=== PATIENT | female | born 1990 | race Hispanic/Latino ===

== ENCOUNTER 2017-09-08 15:54 | Emergency (ER) | payer BC ==
[2017-09-08 16:11] VITALS: O2SAT 100
[2017-09-08] MEDS ORDERED: Sodium Chloride 0.9% 1,000 ML ONE (17:08)
--- NOTE | 2017-09-08 17:18 | C.PDOC ---
History Of Present Illness 26 y/o female presents to ED with c/o "sharp" LLQ abdominal pain radiating to lower back since last night. Patient reports nausea and vomiting today associated with difficulty urinating and states she feels "pressure" in bladder. Patient denies dysuria, hematuria, fever, chills or any other complaints at this time. Time Seen by Provider: 09/08/17 16:43 Chief Complaint (Nursing): Female Genitourinary History Per: Patient History/Exam Limitations: no limitations Onset/Duration Of Symptoms: Days Current Symptoms Are (Timing): Still Present Location Of Pain/Discomfort: LLQ Radiation Of Pain To:: Back Past Medical History Reviewed: Historical Data, Nursing Documentation, Vital Signs Vital Signs: Last Vital Signs Temp 97.4 F L 09/08/17 16:08 Pulse 57 L 09/08/17 16:08 Resp 20 09/08/17 16:08 BP 134/87 09/08/17 16:08 Pulse Ox 100 09/08/17 17:26 - Medical History PMH: Anxiety, Bipolar Disorder, Depression Surgical History: No Surg Hx - [facility] Procedures INFLUENZA VACCINATION (02/16/14) NONEXCIS DEBRID OF WOUND, INFECT, OR BURN (02/16/14) OTHER SKIN & SUBQ I D (02/16/14) RADICAL EXCIS SKIN LES (02/16/14) VACCINATION NEC (02/16/14) Family History: States: No Known Family Hx - Social History Hx Tobacco Use: Yes Hx Alcohol Use: No Hx Substance Use: Yes (smokes) - Immunization History Hx Tetanus Toxoid Vaccination: No Hx Influenza Vaccination: No Hx Pneumococcal Vaccination: No Review Of Systems Constitutional: Negative for: Fever, Chills Gastrointestinal: Positive for: Abdominal Pain Genitourinary: Negative for: Dysuria, Hematuria Musculoskeletal: Positive for: Back Pain Skin: Negative for: Rash Neurological: Negative for: Weakness, Numbness Physical Exam - Physical Exam Appears: Non-toxic, No Acute Distress Skin: Warm, Dry, No Rash Head: Atraumatic, Normacephalic Eye(s): bilateral: Normal Inspection Oral Mucosa: Moist Neck: Normal ROM, Supple Cardiovascular: Rhythm Regular Respiratory: Normal Breath Sounds, No Rales, No Rhonchi, No Wheezing Gastrointestinal/Abdominal: Soft, No Tenderness, No Guarding, No Rebound Back: No CVA Tenderness, No Paraspinal Tenderness Extremity: Normal ROM, Capillary Refill (<2 seconds) Neurological/Psych: Oriented x3, Normal Speech, Normal Cognition, Normal Motor, Normal Sensation ED Course And Treatment - Laboratory Results Result Diagrams: 09/08/17 17:54 09/08/17 17:54 O2 Sat by Pulse Oximetry: 100 (RA) Pulse Ox Interpretation: Normal - CT Scan/US CT of abdomen/pelvis Other Rad Studies (CT/US): Read By Radiologist, Radiology Report Reviewed CT/US Interpretation: Accession No. : [id number]. Patient Name / ID : TUNG SEAY / [id number]. Exam Date : 09/08/2017 18:39:58 ( Approved ). Study Comment : Sex / Age : F / 26Y. Creator : Daniel Hidalgo MD. Dictator : Daniel Hidalgo MD. Supervisor Hanging And Trimming : Electronics Technology Instructor : Daniel Hidalgo MD. Approver2 : Report Date : 09/08/2017 18:53:03. My Comment : . PROCEDURE: CT Abdomen and Pelvis without intravenous contrast. HISTORY: left flank pain /hematuria. COMPARISON: Abdomen ultrasound exam 02/05/2015. TECHNIQUE: Helical CT of the abdomen and pelvis was performed without oral or intravenous contrast as per referring physician request. Contrast dose: None. Radiation dose: Total exam DLP = 1146.00 mGy-cm. This CT exam was performed using one or more of the following dose reduction techniques: Automated exposure control, adjustment of the mA and/or kV according to patient size, and/or use of iterative reconstruction technique. FINDINGS: LOWER THORAX: Fibrotic changes noted minimally at the left base. No pleural pericardial effusion bilaterally or cardiomegaly. LIVER: Unremarkable. No gross lesion or ductal dilatation. GALLBLADDER AND BILE DUCTS: Unremarkable. PANCREAS: Unremarkable. No gross lesion or ductal dilatation. SPLEEN: Unremarkable. ADRENALS: Unremarkable. No mass. KIDNEYS AND URETERS: Borderline left hydronephrosis remains as well as trace left perinephric reaction with a 2 mm calculus identified at the right urinary bladder base likely recently fell from the left-sided urinary tract. No right-sided obstructive uropathy. A punctate intrarenal calculus identified at the midpole right kidney as well as a lower pole. None at the left kidney at this time. VASCULATURE: Unremarkable. No aortic aneurysm. BOWEL: Unremarkable. No obstruction. No gross mural thickening. APPENDIX: Unremarkable. Normal appendix. PERITONEUM: Unremarkable. No free fluid. No free air. LYMPH NODES: Unremarkable. No enlarged lymph nodes. BLADDER: Unremarkable. REPRODUCTIVE: Unremarkable. BONES: No acute fracture. OTHER FINDINGS: None. IMPRESSION: Likely recess expelled calculus from the left urinary tract at the right-sided the urinary bladder base 2 mm in size peer residual left-sided obstructive uropathy is appreciate the left kidney as discussed above. Punctate intrarenal calculi identified at the mid and lower pole right kidney which is otherwise unremarkable. Progress Note: On re-evaluation patient feels better and is stable to be d/c home with follow up. Disposition - Disposition Referrals: Otto Felipe Jr., MD [Staff Provider] - Disposition: HOME/ ROUTINE Disposition Time: 18:58 Condition: IMPROVED Additional Instructions: Follow up with PMD and Urologist within 2-3 days. Return to ED if feel worse. 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 - Scribe Statement The provider has reviewed the documentation as recorded by the Sharon Collado All medical record entries made by the Sharon were at my direction and personally dictated by me. I have reviewed the chart and agree that the record accurately reflects my personal performance of the history, physical exam, medical decision making, and the department course for this patient. I have also personally directed, reviewed, and agree with the discharge instructions and disposition.
[2017-09-08] MEDS ORDERED: Sodium Chloride 0.9% 1,000 ML IV STA (17:35)
[2017-09-08 18:00] LABS: BASO % 0.2 % (0.0-2.0); EOS % 0.1 % (0.0-4.0); HEMOGLOBIN 12.6 g/dL (11.0-16.0); LYMPH # 1.4 K/uL (1.0-4.3); MEAN CELL VOLUME 87.6 fL (81.0-99.0); MEAN CORPUSCULAR HEMOGLOBIN 29.2 pg (27.0-31.0); MEAN CORPUSCULAR HGB CONC 33.4 g/dL (33.0-37.0); MEAN PLATELET VOLUME 9.6 fL (7.2-11.7); MONO # 0.5 K/uL (0.0-0.8); MONO % 4.2 % (0.0-10.0); NEUT # 9.4 K/uL (1.8-7.0); NEUT % 83.5 % (50.0-75.0); NRBC % 0.1 % (0.0-2.0); RBC 4.31 Mil/uL (3.80-5.20); RED CELL DISTRIBUTION WIDTH 14.3 % (11.5-14.5); WHITE BLOOD COUNT 11.3 K/uL (4.8-10.8)
[2017-09-08 18:05] LABS: SQUAMOUS EPITHIAL 9 /hpf (0-5); URINE BACTERIA OCC (<OCC); URINE BILIRUBIN NEGATIVE (NEGATIVE); URINE BLOOD 2+ (NEGATIVE); URINE CLARITY Hazy (Clear); URINE COLOR Yellow (YELLOW); URINE GLUCOSE (UA) NORMAL (Normal); URINE LEUKOCYTE ESTERASE NEG Leu/uL (Negative); URINE PROTEIN 2+ mg/dL (NEGATIVE); URINE UROBILINOGEN NORMAL mg/dL (0.2-1.0)
[2017-09-08] MEDS ORDERED: LIDOCAINE IV STA (18:09)
[2017-09-08] MEDS ORDERED: SODIUM CHLORIDE 0.9% IV STA (18:09)
[2017-09-08 18:13] LABS: ALB/GLOB RATIO 1.3 (1.0-2.1); ALBUMIN 4.7 g/dL (3.5-5.0); ALT/SGPT 20 U/L (9-52); AST/SGOT 19 U/L (14-36); BLOOD UREA NITROGEN 12 mg/dL (7-17); CALCIUM 10.2 mg/dl (8.6-10.4); GFR AFRICAN-AMERICAN > 60; GFR NON-AFRICAN AMERICAN > 60; LIPASE 46 U/L (23-300)
[2017-09-08 18:16] LABS: BARBITURATES, UR NEGATIVE (NEGATIVE); BENZODIAZEPINES, UR NEGATIVE (NEGATIVE); OPIATES, UR NEGATIVE (NEGATIVE); PHENCYCLIDINE, UR NEGATIVE (NEGATIVE)
--- NOTE | 2017-09-08 18:54 | CT ---
PROCEDURE: CT Abdomen and Pelvis without intravenous contrast HISTORY: left flank pain/hematuria COMPARISON: Abdomen ultrasound exam 02/05/2015. TECHNIQUE: Helical CT of the abdomen and pelvis was performed without oral or intravenous contrast as per referring physician request. Contrast dose: None Radiation dose: Total exam DLP = 1146.00 mGy-cm. This CT exam was performed using one or more of the following dose reduction techniques: Automated exposure control, adjustment of the mA and/or kV according to patient size, and/or use of iterative reconstruction technique. FINDINGS: LOWER THORAX: Fibrotic changes noted minimally at the left base. No pleural pericardial effusion bilaterally or cardiomegaly. LIVER: Unremarkable. No gross lesion or ductal dilatation. GALLBLADDER AND BILE DUCTS: Unremarkable. PANCREAS: Unremarkable. No gross lesion or ductal dilatation. SPLEEN: Unremarkable. ADRENALS: Unremarkable. No mass. KIDNEYS AND URETERS: Borderline left hydronephrosis remains as well as trace left perinephric reaction with a 2 mm calculus identified at the right urinary bladder base likely recently fell from the left-sided urinary tract. No right-sided obstructive uropathy. A punctate intrarenal calculus identified at the midpole right kidney as well as a lower pole. None at the left kidney at this time. VASCULATURE: Unremarkable. No aortic aneurysm. BOWEL: Unremarkable. No obstruction. No gross mural thickening. APPENDIX: Unremarkable. Normal appendix. PERITONEUM: Unremarkable. No free fluid. No free air. LYMPH NODES: Unremarkable. No enlarged lymph nodes. BLADDER: Unremarkable. REPRODUCTIVE: Unremarkable. BONES: No acute fracture. OTHER FINDINGS: None. IMPRESSION: Likely recess expelled calculus from the left urinary tract at the right-sided the urinary bladder base 2 mm in size peer residual left-sided obstructive uropathy is appreciate the left kidney as discussed above. Punctate intrarenal calculi identified at the mid and lower pole right kidney which is otherwise unremarkable.
[2017-09-08 19:30] VITALS: BP 115/62; PULSE 65; RESP 18; TEMP 98.7
== END 2017-09-08 19:29 | disposition home or self-care (01) ==
LOC: C.ER 15:54
DX: N23 Unspecified renal colic (principal)
CPT/HCPCS: 74176; 80053; 81001; 83690; 84703; 85025; 96374; 96375; 99284; G0480; J1885; J2405; J7040

== ENCOUNTER 2018-02-28 11:24 | Emergency (ER) | payer BC ==
[2018-02-28 11:30] VITALS: RESP 18; O2SAT 100
[2018-02-28] MEDS ORDERED: Piperacillin/Tazobact 3.375 gm 100 ML IV STA (12:17)
[2018-02-28] MEDS ORDERED: Piperacillin/Tazobact 3.375 gm 100 ML IVPB ONE (12:31)
[2018-02-28 12:41] LABS: URINE BACTERIA MANY (<OCC); URINE BILIRUBIN NEGATIVE (NEGATIVE); URINE BLOOD 1+ (NEGATIVE); URINE CLARITY Hazy (Clear); URINE COLOR Yellow (YELLOW); URINE GLUCOSE (UA) NORMAL (Normal); URINE LEUKOCYTE ESTERASE 1+ Leu/uL (Negative); URINE PROTEIN NEGATIVE (NEGATIVE); URINE UROBILINOGEN NORMAL mg/dL (0.2-1.0)
[2018-02-28 12:42] LABS: BASO % 0.6 % (0.0-2.0); EOS % 0.3 % (0.0-4.0); HEMOGLOBIN 11.7 g/dL (11.0-16.0); LYMPH # 2.6 K/uL (1.0-4.3); LYMPH % 37.7 % (20.0-40.0); MEAN CELL VOLUME 87.6 fL (81.0-99.0); MEAN CORPUSCULAR HEMOGLOBIN 29.9 pg (27.0-31.0); MEAN CORPUSCULAR HGB CONC 34.1 g/dL (33.0-37.0); MEAN PLATELET VOLUME 8.8 fL (7.2-11.7); MONO # 0.5 K/uL (0.0-0.8); MONO % 7.1 % (0.0-10.0); NEUT # 3.7 K/uL (1.8-7.0); NEUT % 54.3 % (50.0-75.0); NRBC % 0.1 % (0.0-2.0); RBC 3.93 Mil/uL (3.80-5.20); RED CELL DISTRIBUTION WIDTH 13.5 % (11.5-14.5); WHITE BLOOD COUNT 6.8 K/uL (4.8-10.8)
[2018-02-28 12:45] LABS: SQUAMOUS EPITHIAL 11 /hpf (0-5)
[2018-02-28 12:53] LABS: ALB/GLOB RATIO 1.6 (1.0-2.1); ALBUMIN 4.1 g/dL (3.5-5.0); ALT/SGPT 16 U/L (9-52); AST/SGOT 12 U/L (14-36); BLOOD UREA NITROGEN 10 mg/dL (7-17); CALCIUM 9.1 mg/dl (8.6-10.4); GFR NON-AFRICAN AMERICAN > 60
[2018-02-28 13:30] VITALS: BP 93/63; PULSE 60; TEMP 98.4
--- NOTE | 2018-02-28 13:48 | C.PDOC ---
Time Seen by Provider: 02/28/18 11:54 Chief Complaint (Nursing): Bite Past Medical History Vital Signs: Last Vital Signs Temp 98.4 F 02/28/18 13:30 Pulse 60 02/28/18 13:30 Resp 18 02/28/18 13:30 BP 93/63 L 02/28/18 13:30 Pulse Ox 100 02/28/18 13:30 - Medical History PMH: Anxiety, Bipolar Disorder, Depression, Kidney Stones (09/11) Denies: Chronic Kidney Disease - [facility] Procedures INFLUENZA VACCINATION (02/16/14) NONEXCIS DEBRID OF WOUND, INFECT, OR BURN (02/16/14) OTHER SKIN & SUBQ I D (02/16/14) RADICAL EXCIS SKIN LES (02/16/14) VACCINATION NEC (02/16/14) Family History: States: Unknown Family Hx - Social History Hx Tobacco Use: Yes Hx Alcohol Use: No Hx Substance Use: Yes (smokes) - Immunization History Hx Tetanus Toxoid Vaccination: No Hx Influenza Vaccination: No Hx Pneumococcal Vaccination: No ED Course And Treatment - Laboratory Results Result Diagrams: 02/28/18 12:37 02/28/18 12:37 O2 Sat by Pulse Oximetry: 100 Disposition - Disposition
--- NOTE | 2018-02-28 13:48 | C.PDOC ---
History Of Present Illness 27 year old female presents to the ED for evaluation after she was bit on her left foot by family cat 2 days ago. Patient reports the wound has worsened today, with pain and redness to the area. Patient was evaluated at urgent care [place] today, and was referred to the ED for further evaluation. Patient reports she was given a Tetanus shot at the urgent care. Patient denies fever, chills. Time Seen by Provider: 02/28/18 11:54 Chief Complaint (Nursing): Bite History Per: Patient History/Exam Limitations: no limitations Onset/Duration Of Symptoms: Days (2) Current Symptoms Are (Timing): Still Present Location Of Injury: Left: Foot Quality Of Symptoms: Painful, Other (redness) Additional History Per: Patient - Animal Bite Description Of The Animal: Family Pet Reports Animal Appears: Well Reports Animal's Immunization Status: UTD Past Medical History Reviewed: Historical Data, Nursing Documentation, Vital Signs Vital Signs: Last Vital Signs Temp 98.4 F 02/28/18 13:30 Pulse 60 02/28/18 13:30 Resp 18 02/28/18 13:30 BP 93/63 L 02/28/18 13:30 Pulse Ox 100 02/28/18 13:30 - Medical History PMH: Anxiety, Bipolar Disorder, Depression, Kidney Stones (09/11) Denies: Chronic Kidney Disease Surgical History: No Surg Hx - [facility] Procedures INFLUENZA VACCINATION (02/16/14) NONEXCIS DEBRID OF WOUND, INFECT, OR BURN (02/16/14) OTHER SKIN & SUBQ I D (02/16/14) RADICAL EXCIS SKIN LES (02/16/14) VACCINATION NEC (02/16/14) Family History: States: Unknown Family Hx - Social History Hx Tobacco Use: Yes Hx Alcohol Use: No Hx Substance Use: Yes (smokes) - Immunization History Hx Tetanus Toxoid Vaccination: No Hx Influenza Vaccination: No Hx Pneumococcal Vaccination: No Review Of Systems Constitutional: Negative for: Fever, Chills Musculoskeletal: Positive for: Foot Pain (left) Skin: Positive for: Other (cat bite to left foot, with pain and redness ) Physical Exam - Physical Exam Appears: Non-toxic, No Acute Distress Skin: Normal Color, Warm, Dry, Other (Two puncture wounds, one over the 4th metatarsal, other over the 1st metatarsal with surrounding erythema) Extremity: Tenderness (dorsal aspect of left foot ), Capillary Refill (less than 2 seconds ), Swelling (dorsal aspect of left foot ), Other (pain with flexion and extension of left toes ) Pulses: Left Dorsalis Pedis: Normal, Right Dorsalis Pedis: Normal Neurological/Psych: Oriented x3, Normal Speech, Normal Cognition ED Course And Treatment - Laboratory Results Result Diagrams: 02/28/18 12:37 02/28/18 12:37 O2 Sat by Pulse Oximetry: 100 (on RA) Pulse Ox Interpretation: Normal Medical Decision Making Medical Decision Making: Progress: Bloodwork, urinalysis, left foot XR ordered and reviewed. Zosyn IV given. Case discussed with podiatry resident, who will evaluate the patient at bedside. Podiatry resident has evaluated the patient at bedside and has cleansed and sterile dressing placed. Disposition - Disposition Referrals: Georgia Soliz DPM [Staff Provider] - Disposition: HOME/ ROUTINE Disposition Time: 13:49 Condition: STABLE Additional Instructions: Follow up with the [facility] within 1-2 days without fail. Return if worsened. 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 - Scribe Statement The provider has reviewed the documentation as recorded by the Scribe (Kathia Woodward) All medical record entries made by the Scribe were at my direction and personally dictated by me. I have reviewed the chart and agree that the record accurately reflects my personal performance of the history, physical exam, medical decision making, and the department course for this patient. I have also personally directed, reviewed, and agree with the discharge instructions and disposition.
--- NOTE | 2018-02-28 16:40 | RAD ---
Date of service: 02/28/2018 PROCEDURE: Left Foot Radiographs. HISTORY: puncture wound to dorsal foot r/o foreign body COMPARISON: None. FINDINGS: BONES: No acute fracture or destructive bony lesion identified. JOINTS: Normal. SOFT TISSUES: Subtle dorsal forefoot soft tissue edema is identified without retained radiodense foreign body or emphysema soft tissue changes. OTHER FINDINGS: None. IMPRESSION: Subtle limited dorsal forefoot soft tissue edema without retained radiodense foreign body or emphysematous changes. No acute fracture, dislocation or destructive bony lesion appreciable left foot.
--- NOTE | 2018-02-28 20:51 | CP.PCM.CON ---
History of Present Illness - History of Present Illness History of Present Illness: Podiatry Consult - Dr. Soliz 27 y/o female with PMHx of PTSD, anxiety seen in ED for left foot wounds, sustained after a cat bite 2 days ago. She states she noticed pain to the top of the foot and mild swelling for the last two days. Admits she went to Urgent Care this morning who prescribed her Augmentin and sent her over to the ED to make sure she did not damage any deep structures. Pt says the pain is tolerable but tender to pressure. Denies F/C/N/V/CP/SOB. Denies drainage from the foot PSHx: removal of cyst from back All: NKDA SocHx: social EtOH; denies cigarette or drug use Review of Systems - Review of Systems All systems: reviewed and no additional remarkable complaints except (per HPI) Past Patient History - Past Medical History & Family History Past Medical History?: Yes - Past Social History Smoking Status: Heavy Smoker > 10 Cigarettes Daily - CARDIAC Hx Cardiac Disorders: No - PULMONARY Hx Respiratory Disorders: No - NEUROLOGICAL Hx Neurological Disorder: No - HEENT Hx HEENT Problems: No - RENAL Hx Chronic Kidney Disease: No Hx Kidney Stones: Yes (09/11) - ENDOCRINE/METABOLIC Hx Endocrine Disorders: No - HEMATOLOGICAL/ONCOLOGICAL Hx Blood Disorders: No - INTEGUMENTARY Hx Dermatological Problems: Yes Hx Psoriasis: Yes Other/Comment: abcess - MUSCULOSKELETAL/RHEUMATOLOGICAL Hx Musculoskeletal Disorders: No Hx Falls: No - GASTROINTESTINAL Hx Gastrointestinal Disorders: No - GENITOURINARY/GYNECOLOGICAL Hx Genitourinary Disorders: No - PSYCHIATRIC Hx Anxiety: Yes Hx Bipolar Disorder: Yes Hx Depression: Yes Hx Substance Use: Yes (smokes) - SURGICAL HISTORY Hx Surgeries: Yes Other/Comment: throat absess a year ago; ear tube at 5 yrs old - ANESTHESIA Hx Anesthesia: Yes Hx Anesthesia Reactions: No Hx Malignant Hyperthermia: No Meds Home Medications: Home Medication List Medication Instructions Recorded Confirmed Type Amoxicillin/Clavulanate [Augmentin 1 tab PO BID #20 tab 02/28/18 Rx 875 MG-125 MG] Allergies/Adverse Reactions: Allergies Allergy/AdvReac Type Severity Reaction Status Date / Time No Known Allergies Allergy Unverified 09/08/17 16:11 Physical Exam - Constitutional Appears: Well, Non-toxic, No Acute Distress - Extremities Exam Additional comments: Left lower extremity exam: Vasc: DP/PT pulses palpable 2/4. Temperature gradient warm to cool. CFT < 3 sec to all digits. Mild edema noted to dorsum of foot Derm: Two circular pinpoint puncture wounds noted to dorsum of proximal 1st metatarsal base and dorsum of 4th metatarsal shaft, approx 0.2cm in diameter and 0.2cm in depth. Mild archana wound erythema noted. No drainage or purulence, no fluctuance, no evidence of abscess formation, no malodor Neuro: Protective sensation grossly intact Ortho: Minimal tenderness to medial puncture wound over 1st metarsal. Moderate tenderness to palpation and pressure at dorsal 4th metatarsal puncture wound. Pt is able to actively extend and flex all digits - Neurological Exam Neurological exam: Alert, Oriented x3 - Psychiatric Exam Psychiatric exam: Normal Affect, Normal Mood Results - Vital Signs Recent Vital Signs: Last Vital Signs Temp 98.4 F 02/28/18 13:30 Pulse 60 02/28/18 13:30 Resp 18 02/28/18 13:30 BP 93/63 L 02/28/18 13:30 Pulse Ox 100 02/28/18 14:07 - Labs Result Diagrams: 02/28/18 12:37 02/28/18 12:37 Labs: Laboratory Results - last 24 hr 02/28/18 02/28/18 02/28/18 12:30 12:37 12:37 WBC 6.8 RBC 3.93 Hgb 11.7 Hct 34.4 MCV 87.6 MCH 29.9 MCHC 34.1 RDW 13.5 Plt Count 268 MPV 8.8 Neut % (Auto) 54.3 Lymph % (Auto) 37.7 [place] % (Auto) 7.1 Eos % (Auto) 0.3 Baso % (Auto) 0.6 Neut # (Auto) 3.7 Lymph # (Auto) 2.6 [place] # (Auto) 0.5 Eos # (Auto) 0.0 Baso # (Auto) 0.0 Sodium 138 Potassium 4.0 Chloride 108 H Carbon Dioxide 22 Anion Gap 13 BUN 10 Creatinine 0.6 L Est GFR ( Amer) > 60 Est GFR (Non-Af Amer) > 60 Random Glucose 82 Calcium 9.1 Total Bilirubin 0.5 AST 12 L D ALT 16 Alkaline Phosphatase 43 Total Protein 6.7 Albumin 4.1 Globulin 2.6 Albumin/Globulin Ratio 1.6 Urine Color Yellow Urine Clarity Hazy Urine pH 5.0 Ur Specific [place] 1.023 Urine Protein Negative Urine Glucose (UA) Normal Urine Ketones Negative Urine Blood 1+ H Urine Nitrate Positive H Urine Bilirubin Negative Urine Urobilinogen Normal Ur Leukocyte Esterase 1+ H Urine WBC (Auto) 10 H Urine RBC (Auto) 19 H Ur Squamous Epith Cells 11 H Urine Bacteria Many H Assessment & Plan - Assessment and Plan (Free Text) Assessment: 27 y/o female with multiple puncture wounds to left foot secondary to cat bite Plan Pt seen and evaluated in ED Discussed with attending Dr. Soliz Labs stable, afebrile L foot x-ray negative for any osseous or abnormal findings Site cleaned with saline and dressed with betadine, DSD Pt advised to complete course of Augmentin as prescribed and monitor the site for sites of infection such as pus,redness, increased swelling, as well as F/C/N/V/CP/SOB - advised pt to return to ED if she experiences these symptoms Pt to follow up in Dr. Soliz's office - will consider outpatient MRI if symptoms do not resolve Thank you for this consult
== END 2018-02-28 14:01 | disposition home or self-care (01) ==
LOC: C.ER 11:24
DX: S91.332A Puncture wound without foreign body, left foot, initial encounter (principal); W55.01XA Bitten by cat, initial encounter
CPT/HCPCS: 73630; 80053; 81001; 85025; 96374; 99284; J2543